=== PATIENT | female | born 1990 | race African-American/Black ===

== ENCOUNTER 2020-01-16 09:23 | Emergency (ER) | payer OTHER ==
[~2020-01-16] VITALS: Ht 152.4 cm; Wt 70.3 kg
[~2020-01-16 09:23] MED LIST: IRON325 PO; PRILOSEC 20 MG20 MG PO
[2020-01-16 10:27] LABS: URINE BILIRUBIN NEGATIVE (Negative); URINE BLOOD 3+ (Negative); URINE CLARITY CLOUDY; URINE COLOR YELLOW; URINE GLUCOSE-RANDOM* NEGATIVE (Negative); URINE KETONES NEGATIVE (Negative); URINE LEUKOCYTES-REFLEX TRACE (Negative); URINE NITRITE-REFLEX NEGATIVE (Negative); URINE PROTEIN (DIPSTICK) 3+ (Negative); URINE SPECIFIC GRAVITY >= 1.030 (1.005-1.035); URINE UROBILINOGEN 0.2 E.U./dl (0.2-1.0)
[2020-01-16 10:32] LABS: BACTERIA-REFLEX >30 Many /HPF (None Seen); CASTS None Seen /LPF (None Seen); CRYSTALS None Seen /LPF (None Seen); SQUAMOUS 0-3 Few /LPF (0-3); URINE RBC >20 Many /HPF (0-2); URINE WBC-REFLEX >25 Many /HPF (0-5)
[2020-01-16] MEDS ORDERED: KEFLEX500 M1 PO (10:53)
[2020-01-16 11:10] VITALS: BP 137/76
== END 2020-01-16 11:10 | disposition home or self-care (01) ==
LOC: ER 09:23
PROVIDERS: Emergency Medicine
DX: N39.0 Urinary tract infection, site not specified (principal); K21.9 Gastro-esophageal reflux disease without esophagitis; Z79.899 Other long term (current) drug therapy

== ENCOUNTER 2020-08-12 16:36 | Emergency (ER) | payer BC ==
[~2020-08-12] VITALS: Ht 152.4 cm; Wt 72.6 kg
[~2020-08-12 16:36] MED LIST changes: +KEFLEX500 M1 PO
[2020-08-12] MEDS ORDERED: VITAMIN D21250 MC1 PO (16:51)
[2020-08-12 18:00] LABS: ABSOLUTE NEUTROPHILS 3.4 thou/uL (1.4-8.2); BASOPHILS 0.7 % (0.0-2.0); EOSINOPHILS 0.5 % (0.0-3.0); HEMATOCRIT 33.5 % (37.0-47.0); HEMOGLOBIN 10.4 gm/dL (12.0-15.0); LYMPHOCYTES 34.3 % (24.0-44.0); MCH 22.9 pg (26.0-34.0); MCHC 31.1 g/dL (28.0-37.0); MCV 73.7 fL (80.0-100.0); MONOCYTES 11.1 % (1.0-8.0); PLATELET COUNT 264 thou/uL (150-400); POLYS 53.4 % (36.0-66.0); RBC 4.54 mil/uL (4.20-5.00); RDW 16.7 % (10.5-14.5); WBC 6.4 thou/uL (4.0-11.0)
[2020-08-12 18:10] LABS: CALCIUM 8.9 mg/dL (8.5-10.1)
[2020-08-12 18:17] LABS: ALBUMIN 3.9 g/dL (3.4-5.0); TOTAL BILIRUBIN 0.2 mg/dL (0.2-1.0); TOTAL PROTEIN 7.6 g/dL (6.4-8.2)
[2020-08-12] MEDS ORDERED: PROAIR HFA8.5 GM INH (19:03)
[2020-08-12] MEDS ORDERED: PREDNISONE 20 M20 MG PO (19:03)
[2020-08-12] MEDS ORDERED: CETIRIZINE HCL5 MG PO (19:03)
[2020-08-12 19:05] LABS: OVALOCYTES 1+; SCHISTOCYTES FEW
[2020-08-12] MEDS ORDERED: IRON325 PO (19:08)
[2020-08-12 19:16] VITALS: BP 118/74
== END 2020-08-12 19:17 | disposition home or self-care (01) ==
LOC: ER 16:36
PROVIDERS: Physician Assistant
DX: R06.02 Shortness of breath (principal); J30.9 Allergic rhinitis, unspecified; E78.5 Hyperlipidemia, unspecified; F12.90 Cannabis use, unspecified, uncomplicated; Z79.899 Other long term (current) drug therapy